=== PATIENT | female | born 1960 | race Asian ===

== ENCOUNTER 2021-09-01 08:00 | Day surgery (SDC) | payer OTHER ==
[~2021-09-01] VITALS: Ht 152.4 cm; Wt 48.1 kg
[2021-09-01] MEDS ORDERED: fentaNYL citrate 0.05 MG/ML VIAL ONE (10:59)
[2021-09-01] MEDS ORDERED: MIDAZOLAM 5 MG/5 ML VIAL ONE (11:00)
[2021-09-01] MEDS ORDERED: LIDOCAINE 2% 100 MG/5 ML UJET TP ONE (11:00)
[2021-09-01] MEDS ORDERED: MIDAZOLAM 2 MG/2 ML VIAL IVP ONE (18:10)
[2021-09-01] MEDS ORDERED: fentaNYL citrate 0.05 MG/ML VIAL IVP ONE (18:10)
== END 2021-09-01 12:36 | disposition home or self-care (01) ==
LOC: MMU 08:00 → MDS 08:00
PROVIDERS: ATTEND Internal Medicine Gastroenterology
DX: Z12.11 Encounter for screening for malignant neoplasm of colon (principal); D13.1 Benign neoplasm of stomach; D12.3 Benign neoplasm of transverse colon; R10.13 Epigastric pain; Z86.010 Personal history of colon polyps; K57.30 Diverticulosis of large intestine without perforation or abscess without bleeding; Z79.899 Other long term (current) drug therapy; Z20.822 Contact with and (suspected) exposure to COVID-19
CPT/HCPCS: 43239; 45385; 87426; J2250; J3010